=== PATIENT | female | born 1955 | race Caucasian/White ===

== ENCOUNTER 2019-07-06 19:30 | Emergency (ER) | payer OTHER ==
--- NOTE | 2019-07-06 19:43 | PDOC ---
Rapid Medical Evaluation Chief Complaint: CVA/TIA Time Seen by Provider: 07/06/19 19:42 Medical Evaluation: Allergies Allergy/AdvReac Type Severity Reaction Status Date / Time No Known Allergies Allergy Verified 07/06/19 19:41 07/06/19 19:42 CC: R facial numbness and RUE numbness Pt is a 63 y/o female who has noticed R facial numbness since this morning. She states as the day went on, she noticed RUE numbness. Symptoms started at about 12 noon. Brief exam: No facial droop, strength 5/5 b/l UE, speaking in full clear sentences. Orders: labs, ct head, monitor, saline lock To ED for further evaluation 07/06/19 19:47 Discharge Disposition - Diagnosis Right facial numbness - Referrals - Patient Instructions - Post Discharge Activity
[2019-07-06 19:48] VITALS: PULSE 68; TEMP 97.5; BMI 25.6
--- NOTE | 2019-07-06 20:52 | PDOC ---
History of Present Illness - General Chief Complaint: CVA/TIA Stated Complaint: RIGHT SIDE NUMBNESS Time Seen by Provider: 07/06/19 19:42 History Source: Patient Exam Limitations: No Limitations - History of Present Illness Initial Comments: 07/06/19 20:55 63y F with PMH of constipation presenting to ED with complaints of R upper lip numbness and R fingertip numbness since noon today. Pt states that she had a slight throbbing R sided HANSEN yesterday and this AM which has now resolved but states that she also woke up with numbness in the R upper lip and the R fingertips. The numbness is resolving but is still present. Denies weakness, changes in vision, numbness in the legs or feet, chest pain, sob, head injury, thunderclap HANSEN, neck stiffness, photophobia, ataxia, dizziness, hearing difficulties. PMD: [place]: [facility] PMH: see hpi PSH: colonoscopy with polyp removal Meds: see med rec Allergies: nkda Social: denies tPA Exclusion Checklist 0-3hr - Time Elapsed Date last known well: 07/06/19 Time last known well: 12:00 Elaspsed time: Day(s) and 11 Hour(s) and 5 Minutes - Exclusion Criteria 0-3hr SBP greater than 185 or DBP greater than 110mmHg despite tx: No Recent IC/spinal surgery,head trauma or stroke w/in last 3mo: No Hx of previous IC hemorrhage, IC neoplasm, AVM or aneurysm: No Active internal bleeding: No Blding diathesis(low plt ct, inc PTT,INR>1.7 or use of NOAC): No Symptoms suggest subarachnoid hemorrhage: No CT demonstrates multilobar infarct(>1/3 cerebral hemiphere): No Arterial puncture at noncompressible site in previous 7 days: No Blood glucose concentration less than 50mg/dL (2.7mmol/L): No - Relative Exclusion Criteria 0-3h Stroke severity too mild: Yes - Ineligibility reason(s) Reasons No tPA given: Outside of window - delayed arrival NIH Stroke Scale - Last Known Well Date/Time & Onset Date Last Known Well: 07/06/19 Time Last Known Well: 12:00 - Initial Evaluation Level of consciousness: Alert Ask patient the month and their age: Answers both correctly Ask patient to open & close eyes; make fist and let go: Obeys both correctly Best gaze (horizontal eye movement): Normal Visual field testing: No visual field loss Facial paresis (Show teeth/raise eyebrows/close eyes tight): Normal symmetrical movement Motor Function: Left Arm: Normal Motor Function: Right Arm: Normal (extends arm 90 (or 45) degrees for 10 seconds without drift Motor Function: Left Leg: Normal (extends leg 30 degrees for 5 seconds without drift) Motor Function: Right Leg: Normal (extends leg 30 degrees for 5 seconds without drift) Limb Ataxia: No ataxia Sensory(Use pinprick test arms,legs,trunk,face/side to side): Normal Best language (Describe picture, name items, read sentences): No Aphasia Dysarthria (read several words): Normal articulation Extinction and Inattention: No abnormality - Total Score NIH Stroke Scale Score: 0 Past History - Past Medical History Allergies/Adverse Reactions: Allergies Allergy/AdvReac Type Severity Reaction Status Date / Time No Known Allergies Allergy Verified 07/06/19 19:41 COPD: No Other medical history: CONSTIPATION & GLAUCOMA - Immunization History Immunization Up to Date: Yes - Psycho Social/Smoking Cessation Hx Smoking History: Never smoked Hx Alcohol Use: No Drug/Substance Use Hx: No *Physical Exam - Vital Signs Last Vital Signs Temp Pulse Resp BP Pulse Ox 97.5 F L 68 17 154/68 95 07/06/19 19:42 07/06/19 19:42 07/06/19 19:42 07/06/19 19:42 07/06/19 19:42 ED Treatment Course - LABORATORY CBC & Chemistry Diagram: 07/06/19 20:40 07/06/19 20:40 Medical Decision Making - Medical Decision Making 07/06/19 21:51 63y F presenting with R upper lip numbness and R fingertip numbness. Vitals wnl. NIHSS 0. Not a tpa candidate. labs and imaging ordered by E. CT head shows atherosclerotic changes without acute patholgy. given symptoms, does not have LVO. ddx also includes neuropathy. labs show elevated cholesterol. Given symptoms and stroke scale of 0, pt does not necessarily require admission , will consult neurology for recs. 07/06/19 23:06 pt denies headache, numbness is resolving but still present. No gross neurological deficits on exam. labs show elevated glucose and cholesterol. Spoke to Dr. Sargent, will see pt in office. can be dc home. referral given. given return precaution. Discharge - Discharge Information Problems reviewed: Yes Clinical Impression/Diagnosis: Right facial numbness Condition: Stable Disposition: HOME - Admission No - Follow up/Referral Referrals: Mirta Meade MD [Primary Care Provider] - Po Sargent MD [Staff Physician] - - Patient Discharge Instructions Patient Printed Discharge Instructions: DI for Numbness/tingling Additional Instructions: You were seen in the emergency room today for numbness. The CT normal. The blood work shows elevated cholesterol. I would recommend making an appointment with Dr. Meade regarding these results. I also recommend following up with a neurologist regarding the numbness. I have provided the information for Dr. Sargent (neurologist) below. Come back to the emergency room if numbness continues or gets worse, you have headache, changes in your vision, weakness or if any new or concerning symptom develops. Thank you - Post Discharge Activity
--- NOTE | 2019-07-06 21:25 | PDOC ---
Attending Attestation - Resident Resident Name: Vidya Chisholm - ED Attending Attestation I have performed the following: I have examined & evaluated the patient, The case was reviewed & discussed with the resident, I agree w/resident's findings & plan, Exceptions are as noted - HPI HPI: 07/06/19 21:22 63 F with no significant PMH presents to ED with R lip and R fingertip numbness. Pt states she awoke with numbness to her R upper lip. As the day progressed, she started noticing numbness in her R fingertips as well. Pt denies any weakness in any extremity. Denies facial droop. Pt states that she had a headache yesterday that has since resolved. No N/V. No neck pain/back pain. - Physicial Exam PE: 07/06/19 21:23 "GENERAL: Awake, alert, and fully oriented, in no acute distress. HEAD: No signs of trauma EYES: PERRLA, EOMI, sclera anicteric, conjunctiva clear ENT: Auricles normal inspection, hearing grossly normal, nares patent, oropharynx clear without exudates. Moist mucosa NECK: Nontender, no stepoffs, Normal ROM, supple, no lymphadenopathy, JVD, or masses LUNGS: Breath sounds equal, clear to auscultation bilaterally. No wheezes, and no crackles HEART: Regular rate and rhythm, normal S1 and S2, no murmurs, rubs or gallops ABDOMEN: Soft, nontender, normoactive bowel sounds. No guarding, no rebound. No masses EXTREMITIES: Normal range of motion, no edema. No clubbing or cyanosis. No cords, erythema, or tenderness NEUROLOGICAL: Cranial nerves II through XII intact. 5/5 strength and sensation in all extremities, Normal speech, normal gait, normal cerebellar function SKIN: Warm, Dry, normal turgor, no rashes or lesions noted. - Medical Decision Making 07/06/19 21:23 63 F with subjective R lip and R fingertip numbness. No discernable sensory deficits on exam. Normal neuro exam. Low suspicion for CVA. - Labs - CT head - Discuss w/ neuro 07/06/19 22:40 Labs, CT unremarkable Case discussed with Dr. Sargent, who recommends outpt f/u Pt is well appearing, with normal vitals. Clinically stable for DC at this time. I discussed the physical exam findings, ancillary test results and final diagnoses with the patient. I answered all of the patient's questions. The patient was satisfied with the care received and felt comfortable with the discharge plan and treatment plan. The patient agrees to follow up with the primary care physician within 24-72 hours. NIH Stroke Scale - Last Known Well Date/Time & Onset Date Last Known Well: 07/05/19 Time Last Known Well: 20:00 - Initial Evaluation Level of consciousness: Alert Ask patient the month and their age: Answers both correctly Ask patient to open & close eyes; make fist and let go: Obeys both correctly Best gaze (horizontal eye movement): Normal Visual field testing: No visual field loss Facial paresis (Show teeth/raise eyebrows/close eyes tight): Normal symmetrical movement Motor Function: Left Arm: Normal Motor Function: Right Arm: Normal (extends arm 90 (or 45) degrees for 10 seconds without drift Motor Function: Left Leg: Normal (extends leg 30 degrees for 5 seconds without drift) Motor Function: Right Leg: Normal (extends leg 30 degrees for 5 seconds without drift) Limb Ataxia: No ataxia Sensory(Use pinprick test arms,legs,trunk,face/side to side): Normal Best language (Describe picture, name items, read sentences): No Aphasia Dysarthria (read several words): Normal articulation Extinction and Inattention: No abnormality - Total Score NIH Stroke Scale Score: 0
[2019-07-06 21:38] LABS: BASO % 0.6 % (0-2.0); EOS % 2.3 % (0-4.5); HEMATOCRIT 39.2 % (32.4-45.2); HEMOGLOBIN 13.5 GM/dL (10.7-15.3); LYMPH % 45.8 % (8-40); MCH 29.2 pg (25.7-33.7); MCHC 34.4 g/dl (32.0-36.0); MEAN PLT VOLUME 9.9 fl (7.5-11.1); MONO % 4.5 % (3.8-10.2); NEUT % 46.8 % (42.8-82.8); PLATELET COUNT 223 K/MM3 (134-434); RBC 4.62 M/mm3 (3.60-5.2); RDW 13.1 % (11.6-15.6); WHITE BLOOD COUNT 9.3 K/mm3 (4.0-10.0)
[2019-07-06 21:40] LABS: ALBUMIN 3.5 g/dl (3.4-5.0); ALK PHOS 71 U/L (45-117); ANION GAP 6 MMOL/L (8-16); BILIRUBIN,TOTAL 0.1 mg/dL (0.2-1); BLOOD UREA NITROGEN 12.6 mg/dL (7-18); CALCIUM 8.5 mg/dL (8.5-10.1); CHLORIDE 105 mmol/L (98-107); CHOLESTEROL 262 mg/dL (50-200); CO2 26 mmol/L (21-32); CREATININE 1.2 mg/dL (0.55-1.3); GLUCOSE,RANDOM 229 mg/dL (74-106); HDL CHOLESTEROL 34 mg/dL (40-60); LDL CHOLESTEROL (ONLY SJRH) 171 mg/dL (5-100); POTASSIUM 4.1 mmol/L (3.5-5.1); SGOT/AST 12 U/L (15-37); SGPT/ALT 19 U/L (13-61); SODIUM 137 mmol/L (136-145); TOT PROT 6.6 g/dl (6.4-8.2); TRIGLYCERIDES 270 mg/dL (0-150)
[2019-07-06 22:09] LABS: URINE APPEARANCE CLEAR; URINE BILIRUBIN NEGATIVE (NEGATIVE); URINE COLOR YELLOW; URINE GLUCOSE (UA) 3+ (NEGATIVE); URINE KETONE NEGATIVE (NEGATIVE); URINE LEUK ESTERASE NEGATIVE (NEGATIVE); URINE NITRITE NEGATIVE (NEGATIVE); URINE PROTEIN NEGATIVE (NEGATIVE); URINE UROBILINOGEN 0.2 mg/dL (0.2-1.0)
[2019-07-06 23:07] VITALS: BP 149/76
--- NOTE | 2019-07-07 15:08 | EKG ---
Test Reason : Blood Pressure : / mmHG Vent. Rate : 059 BPM Atrial Rate : 059 BPM P-R Int : 148 ms QRS Dur : 082 ms QT Int : 400 ms P-R-T Axes : 058 005 082 degrees QTc Int : 396 ms SINUS BRADYCARDIA POSSIBLE LEFT ATRIAL ENLARGEMENT NONSPECIFIC T WAVE ABNORMALITY ABNORMAL ECG WHEN COMPARED WITH ECG OF 15-JUL-2000 09:06, T WAVE INVERSION NOW EVIDENT IN LATERAL LEADS Confirmed by LULY SCHROEDER MD ([id number]) on 07/07/2019 3:08:37 PM Referred By: Confirmed By:LULY SCHROEDER MD
== END 2019-07-06 23:00 | disposition home or self-care (01) ==
LOC: JER 19:30
DX: R20.0 Anesthesia of skin (principal); R73.9 Hyperglycemia, unspecified; E78.00 Pure hypercholesterolemia, unspecified
CPT/HCPCS: 36415; 70450-TC; 80053; 80061; 81003; 82550; 83721; 84484; 85025; 86850; 86900; 86901; 93005; 93010; 99283-25